=== PATIENT | male | born 1970 | race Hispanic/Latino ===

== ENCOUNTER 2017-04-17 08:44 | Emergency (ER) | payer MEDICAID ==
[2017-04-17 08:44] VITALS: BMI 39.1
[2017-04-17] MEDS ORDERED: Naproxen 550 mg Tab PO STA (09:16)
[2017-04-17] MEDS ORDERED: Naproxen 550 mg Tab PO ONE (09:24)
--- NOTE | 2017-04-17 09:38 | C.PDOC ---
History Of Present Illness 46-year-old male, presents to the emergency department with complaints of mid- back pain intermittently over the past few years. Patient has a Hx of herniated disk, and had surgery 2-3 years ago. One week ago, patients pain returned, and worsened over the past few days, resulting in him coming in to the ED for eval. Patient notes associated numbness radiating down his buttock and left leg. States he has not taken any meds for pain. Patient also reports francisco he sprained right ankle 6 months ago and is still having pain when he ambulates. States he never followed up outpatient. Time Seen by Provider: 04/17/17 09:02 Chief Complaint (Nursing): Back Pain History Per: Patient History/Exam Limitations: no limitations Onset/Duration Of Symptoms: Days Current Symptoms Are (Timing): Still Present Past Medical History Reviewed: Historical Data, Nursing Documentation, Vital Signs Vital Signs: Last Vital Signs Temp 97.7 F 04/17/17 10:15 Pulse 67 04/17/17 10:15 Resp 20 04/17/17 10:15 BP 142/78 04/17/17 10:15 Pulse Ox 98 04/17/17 12:32 - Medical History PMH: Asthma, Back Problems, Bronchitis, Kidney Stones Surgical History: Appendectomy, Back Surgery, Hernia Repair - [facility] Procedures OTHER OPEN UMBILICAL HERNIORRHAPHY (03/01/15) Family History: States: No Known Family Hx - Social History Hx Tobacco Use: No Hx Alcohol Use: No Hx Substance Use: No - Immunization History Hx Tetanus Toxoid Vaccination: No Hx Influenza Vaccination: No Hx Pneumococcal Vaccination: No Review Of Systems Constitutional: Negative for: Fever Gastrointestinal: Negative for: Nausea, Vomiting Genitourinary: Negative for: Incontinence Musculoskeletal: Positive for: Back Pain, Foot Pain (Ankle, right) Neurological: Positive for: Numbness Physical Exam - Physical Exam Appears: Non-toxic, No Acute Distress Skin: Normal Color, Warm, Dry Gastrointestinal/Abdominal: Soft, No Tenderness, No Guarding Back: No CVA Tenderness, No Vertebral Tenderness, Paraspinal Tenderness (B/L Lumbar), Straight Leg Raising (causing local back pain) Extremity: Normal ROM, No Tenderness, No Deformity, No Swelling Neurological/Psych: Oriented x3, Normal Speech, Normal Cognition ED Course And Treatment O2 Sat by Pulse Oximetry: 98 - Other Rad ankle X-Ray: Interpreted by Me (normal) Medical Decision Making Medical Decision Making: Pt markedly improved post Naprosyn Ankle no indiction of old fx Plan dc home rx's Disposition Counseled Patient/Family Regarding: Need For Followup - Disposition Referrals: Shaik Armenta MD [Staff Provider] - Disposition: HOME/ ROUTINE Disposition Time: 09:35 Condition: GOOD Prescriptions: Gabapentin [Neurontin] 1 cap PO TID #50 cap Naproxen [Naprosyn] 1 tab PO BID PRN #25 tab PRN Reason: Pain Instructions: Ankle Exercises (GEN), Back Pain (ED), Back Exercises (ED) - Clinical Impression Clinical Impression: Lumbar radiculopathy, Ankle pain - Scribe Statement The provider has reviewed the documentation as recorded by the Scribe (Kingsley Raymundo) All medical record entries made by the Scribe were at my direction and personally dictated by me. I have reviewed the chart and agree that the record accurately reflects my personal performance of the history, physical exam, medical decision making, and the department course for this patient. I have also personally directed, reviewed, and agree with the discharge instructions and disposition.
[2017-04-17 10:16] VITALS: BP 142/78; PULSE 67; RESP 20; TEMP 97.7
--- NOTE | 2017-04-17 10:41 | RAD ---
PROCEDURE: Right Ankle Radiographs. HISTORY: pain no recent trauma COMPARISON: None FINDINGS: BONES: Bone alignment and mineralization are normal. No acute fracture. JOINTS: Normal. Ankle mortise maintained. Talar dome intact SOFT TISSUES: There is mild lateral soft tissue swelling. OTHER FINDINGS: None. IMPRESSION: No acute fracture or dislocation. Mild lateral soft tissue swelling.
[2017-04-17 12:30] VITALS: O2SAT 98
== END 2017-04-17 10:14 | disposition home or self-care (01) ==
LOC: C.ER 08:44
DX: M54.16 Radiculopathy, lumbar region (principal); M25.571 Pain in right ankle and joints of right foot

== ENCOUNTER 2017-10-21 20:34 | Observation (INO) | payer MEDICAID ==
[2017-10-21 20:34] VITALS: BMI 39.1
[2017-10-21 20:42] VITALS: RESP 20
--- NOTE | 2017-10-21 20:58 | C.PDOC ---
History Of Present Illness 47M c/o swelling in both ankles for the last 4 to 5 months and pain for 4 days. he has a hx of lupus and usually has pain in his whole body but not normally the ankles. he also has felt subjective fever for 2 nights. takes plaquenil daily. Time Seen by Provider: 10/21/17 20:58 Chief Complaint (Nursing): Lower Extremity Problem/Injury Past Medical History Vital Signs: Last Vital Signs Temp 97.9 F 10/21/17 20:39 Pulse 91 H 10/21/17 20:39 Resp 20 10/21/17 20:39 BP 118/83 10/21/17 20:39 Pulse Ox 95 10/21/17 21:55 - Medical History PMH: Asthma, Back Problems, Bronchitis, Kidney Stones Surgical History: Appendectomy, Back Surgery, Hernia Repair - [facility] Procedures OTHER OPEN UMBILICAL HERNIORRHAPHY (03/01/15) Family History: States: Other Other Family History: nc - Social History Hx Tobacco Use: No Hx Alcohol Use: No Hx Substance Use: No - Immunization History Hx Tetanus Toxoid Vaccination: No Hx Influenza Vaccination: No Hx Pneumococcal Vaccination: No Review Of Systems Except As Marked, All Systems Reviewed And Found Negative. Constitutional: Positive for: Fever, Chills, Malaise ENT: Negative for: Nose Congestion Cardiovascular: Negative for: Chest Pain Respiratory: Positive for: Wheezing. Negative for: Cough, Shortness of Breath Gastrointestinal: Negative for: Nausea, Vomiting, Abdominal Pain Genitourinary: Positive for: Frequency. Negative for: Dysuria Neurological: Negative for: Weakness, Numbness, Headache Physical Exam - Physical Exam Appears: Well, Non-toxic, No Acute Distress Skin: Warm, Dry Head: Atraumatic Eye(s): bilateral: PERRL Nose: No Epistaxis Oral Mucosa: Moist Cardiovascular: Rhythm Regular Respiratory: No Decreased Breath Sounds, No Accessory Muscle Use, No Rales, No Rhonchi, Wheezing Gastrointestinal/Abdominal: Soft, No Tenderness Extremity: Normal ROM, No Pedal Edema (no pitting edema), No Swelling Pulses: Left Dorsalis Pedis: Normal, Right Dorsalis Pedis: Normal Neurological/Psych: Oriented x3, Normal Motor, Normal Sensation, Other (no focal deficits) ED Course And Treatment - Laboratory Results Result Diagrams: 10/21/17 21:29 12/21/17 21:29 O2 Sat by Pulse Oximetry: 95 Medical Decision Making Medical Decision Making: EKG: Normal Sinus Rhythm rate 86bpm. Normal axis. Normal intervals. No acute ischemia. CXR: no acute findings Disposition - Disposition Disposition: HOSPITALIZED Disposition Time: 22:23 Condition: STABLE Forms: [facility] (Vietnamese) - Clinical Impression Clinical Impression: Bilateral ankle pain
[2017-10-21 21:35] LABS: BASO # 0.1 K/uL (0.0-0.2); BASO % 1.2 % (0.0-2.0); EOS # 0.7 K/uL (0.0-0.7); EOS % 10.8 % (0.0-4.0); HEMATOCRIT 43.2 % (35.0-51.0); LYMPH % 29.6 % (20.0-40.0); MEAN CELL VOLUME 87.8 fL (80.0-94.0); MEAN CORPUSCULAR HGB CONC 35.3 g/dL (33.0-37.0); MEAN PLATELET VOLUME 9.9 fL (7.2-11.7); MONO # 0.6 K/uL (0.0-0.8); MONO % 8.3 % (0.0-10.0); NRBC % 0.1 % (0.0-2.0); RED CELL DISTRIBUTION WIDTH 12.7 % (11.5-14.5); WHITE BLOOD COUNT 6.7 K/uL (4.8-10.8)
[2017-10-21 21:45] LABS: ALB/GLOB RATIO 1.5 (1.0-2.1); ALKALINE PHOSPHATASE 105 U/L (38-126); ALT/SGPT 46 U/L (21-72); AST/SGOT 32 U/L (17-59); BILIRUBIN,TOTAL 0.5 mg/dL (0.2-1.3); BLOOD UREA NITROGEN 13 mg/dL (9-20); CALCIUM 8.7 mg/dl (8.6-10.4); CARBON DIOXIDE 27 mmol/L (22-30); CHLORIDE 101 mmol/L (98-107); GFR AFRICAN-AMERICAN > 60; GLUCOSE,RANDOM 144 mg/dL (75-110); POTASSIUM 3.9 mmol/L (3.6-5.2); SODIUM 136 mmol/L (132-148); TOTAL PROTEIN 6.8 g/dL (6.3-8.3)
[2017-10-22 07:36] LABS: RBC URINE 1 /hpf (0-3); URINE BILIRUBIN NEGATIVE (NEGATIVE); URINE BLOOD NEGATIVE (NEGATIVE); URINE COLOR Yellow (YELLOW); URINE GLUCOSE (UA) NORMAL (Normal); URINE KETONE TRACE mg/dL (NEGATIVE); URINE LEUKOCYTE ESTERASE NEG Leu/uL (Negative); URINE PROTEIN NEGATIVE (NEGATIVE); WBC URINE 6 /hpf (0-5)
--- NOTE | 2017-10-22 08:51 | RAD ---
HISTORY: leg swelling COMPARISON: 12/23/2016 FINDINGS: LUNGS: The lungs are well inflated. No focal consolidation. Mild pulmonary venous congestion. PLEURA: No significant pleural effusion identified, no pneumothorax apparent. CARDIOVASCULAR: Mild cardiomegaly. OSSEOUS STRUCTURES: No significant abnormalities. VISUALIZED UPPER ABDOMEN: Normal. OTHER FINDINGS: None. IMPRESSION: No active pulmonary disease.
[2017-10-22] MEDS: Pantoprazole 40 mg EC Tab PO SCH (09:34)
[2017-10-22] MEDS: Enoxaparin 40 mg Syringe SC SCH (09:35)
--- NOTE | 2017-10-22 16:26 | RAD ---
PROCEDURE: Bilateral Ankle Radiographs. HISTORY: pain and swelling both ankles COMPARISON: Right ankle from 04/17/2017 and 12/29/2016 FINDINGS: BONES: Right Ankle: Normal. No fracture. Left Ankle: Normal. No fracture. There is a prominent plantar calcaneal spur. JOINTS: Right Ankle: Normal. No osteoarthritis. Ankle mortise maintained. Talar dome intact. Left Ankle: Normal. No osteoarthritis. Ankle mortise maintained. Talar dome intact. SOFT TISSUES: Right Ankle: Normal. Left Ankle: Normal. OTHER FINDINGS: None. IMPRESSION: Normal bilateral ankle radiographs.
--- NOTE | 2017-10-22 18:33 | CARD ---
APPROVED REPORT EKG Measurement Heart [id number] DC 150P71 [id number] <Conclusion> Normal sinus rhythm Normal ECG
--- NOTE | 2017-10-22 21:24 | CP.PCM.HP ---
Past Patient History - Infectious Disease Hx of Infectious Diseases: None - Past Medical History & Family History Past Medical History?: Yes - Past Social History Smoking Status: Unknown If Ever Smoked - CARDIAC Hx Cardiac Disorders: No - PULMONARY Hx Respiratory Disorders: Yes Hx Asthma: Yes Hx Bronchitis: Yes - NEUROLOGICAL Hx Neurological Disorder: No - HEENT Hx HEENT Problems: Yes Other/Comment: farsightedness - RENAL Hx Chronic Kidney Disease: Yes Hx Kidney Stones: Yes - ENDOCRINE/METABOLIC Hx Endocrine Disorders: Yes Hx Systemic Lupus Erythematosus: Yes - HEMATOLOGICAL/ONCOLOGICAL Hx Blood Disorders: No - INTEGUMENTARY Hx Dermatological Problems: No - MUSCULOSKELETAL/RHEUMATOLOGICAL Hx Musculoskeletal Disorders: No Hx Falls: No - GASTROINTESTINAL Hx Gastrointestinal Disorders: No - GENITOURINARY/GYNECOLOGICAL Hx Genitourinary Disorders: No - PSYCHIATRIC Hx Psychophysiologic Disorder: No Hx Substance Use: No - SURGICAL HISTORY Hx Surgeries: Yes Hx Appendectomy: Yes Hx Herniorrhaphy: Yes - ANESTHESIA Hx Anesthesia: Yes Hx Anesthesia Reactions: No Hx Malignant Hyperthermia: No Has any member of the family had a problem w/ anesthesia?: No Meds Allergies/Adverse Reactions: Allergies Allergy/AdvReac Type Severity Reaction Status Date / Time iodine Allergy Verified 10/21/17 20:39 shellfish Allergy URTICARIA Uncoded 12/23/16 08:14 Physical Exam - Constitutional Appears: Well - Eye Exam Eye Exam: EOMI, Normal appearance, PERRL Pupil Exam: NORMAL ACCOMODATION, PERRL - ENT Exam ENT Exam: Mucous Membranes Moist, Normal Exam - Neck Exam Neck exam: Positive for: Normal Inspection - Respiratory Exam Respiratory Exam: Decreased Breath Sounds - Cardiovascular Exam Cardiovascular Exam: REGULAR RHYTHM, +S1, +S2 - GI/Abdominal Exam GI & Abdominal Exam: Diminished Bowel Sounds, Soft - Rectal Exam Rectal Exam: Deferred Results - Vital Signs Recent Vital Signs: Last Vital Signs Temp 98.2 F 10/22/17 15:12 Pulse 75 10/22/17 15:12 Resp 20 10/22/17 15:12 BP 117/73 10/22/17 15:12 Pulse Ox 93 L 10/22/17 15:12 - Labs Result Diagrams: 10/21/17 21:29 10/21/17 21:29 Labs: Laboratory Results - last 24 hr 10/21/17 10/21/17 10/21/17 21:29 21:29 21:29 WBC 6.7 RBC 4.92 Hgb 15.2 Hct 43.2 MCV 87.8 MCH 31.0 MCHC 35.3 RDW 12.7 Plt Count 246 MPV 9.9 Neut % (Auto) 50.1 Lymph % (Auto) 29.6 Stevens % (Auto) 8.3 Eos % (Auto) 10.8 H Baso % (Auto) 1.2 Neut # 3.4 Lymph # 2.0 Stevens # 0.6 Eos # 0.7 Baso # 0.1 ESR 5 Sodium 136 Potassium 3.9 Chloride 101 Carbon Dioxide 27 Anion Gap 12 BUN 13 Creatinine 1.0 Est GFR ( Amer) > 60 Est GFR (Non-Af Amer) > 60 Random Glucose 144 H Calcium 8.7 Total Bilirubin 0.5 AST 32 ALT 46 Alkaline Phosphatase 105 Troponin I < 0.0120 C-React Prot High Sens 3.80 H NT-Pro-B Natriuret Pep < 11.1 Total Protein 6.8 Albumin 4.0 Globulin 2.8 Albumin/Globulin Ratio 1.5 Urine Color Urine Clarity Urine pH Ur Specific [place] Urine Protein Urine Glucose (UA) Urine Ketones Urine Blood Urine Nitrate Urine Bilirubin Urine Urobilinogen Ur Leukocyte Esterase Urine WBC (Auto) Urine RBC (Auto) Ur Squamous Epith Cells Anti-Staphylolysin O 10/22/17 10/22/17 10/22/17 07:16 11:29 11:29 WBC RBC Hgb Hct MCV MCH MCHC RDW Plt Count MPV Neut % (Auto) Lymph % (Auto) Stevens % (Auto) Eos % (Auto) Baso % (Auto) Neut # Lymph # Stevens # Eos # Baso # ESR Sodium Potassium Chloride Carbon Dioxide Anion Gap BUN Creatinine Est GFR ( Amer) Est GFR (Non-Af Amer) Random Glucose Calcium Total Bilirubin AST ALT Alkaline Phosphatase Troponin I C-React Prot High Sens 3.47 H NT-Pro-B Natriuret Pep Total Protein Albumin Globulin Albumin/Globulin Ratio Urine Color Yellow Urine Clarity Clear Urine pH 5.0 Ur Specific [place] 1.030 Urine Protein Negative Urine Glucose (UA) Normal Urine Ketones Trace Urine Blood Negative Urine Nitrate Negative Urine Bilirubin Negative Urine Urobilinogen 2.0 Ur Leukocyte Esterase Neg Urine WBC (Auto) 6 H Urine RBC (Auto) 1 Ur Squamous Epith Cells 1 Anti-Staphylolysin O Negative
[2017-10-23 00:39] VITALS: BP 128/60; PULSE 70; TEMP 97.4; O2SAT 95
[2017-10-23] MEDS: Pantoprazole 40 mg EC Tab PO SCH (09:36)
[2017-10-23] MEDS: Enoxaparin 40 mg Syringe SC SCH ×2 (09:36→10:15)
[2017-10-23] MEDS ORDERED: Pneumococcal 23-Valent Vaccine IM ONE (10:00)
[2017-10-23] MEDS ORDERED: Influenza Vaccine 60 mcg/0.5 mL SYR (4YR UP) IM ONE (10:00)
--- NOTE | 2017-10-23 11:19 | CP.PCM.PN ---
Subjective - Date & Time of Evaluation Date of Evaluation: 10/23/17 Time of Evaluation: 11:18 Objective - Vital Signs/Intake and Output Vital Signs (last 24 hours): Temp Pulse Resp BP Pulse Ox 97.4 F L 70 20 128/60 95 10/23/17 00:00 10/23/17 00:00 10/23/17 00:00 10/23/17 00:00 10/23/17 00:00 Intake and Output: 10/23/17 10/23/17 06:59 18:59 Intake Total 550 Balance 550 - Medications Medications: Current Medications Enoxaparin Sodium (Lovenox) 40 mg SC DAILY [facility] Last Admin: 10/23/17 10:15 Dose: Not Given Gabapentin (Neurontin) 100 mg PO TID [facility] Last Admin: 10/23/17 09:35 Dose: 100 mg Hydromorphone HCl (Dilaudid) 1 mg IVP Q8H PRN PRN Reason: Pain, severe (8-10) Last Admin: 10/22/17 01:14 Dose: 1 mg Pantoprazole Sodium (Protonix Ec Tab) 40 mg PO DAILY [facility] Last Admin: 10/23/17 09:36 Dose: 40 mg - Labs Labs: 10/21/17 21:29 10/21/17 21:29
--- NOTE | 2017-10-23 15:18 | CP.PCM.PN ---
Subjective - Date & Time of Evaluation Date of Evaluation: 10/23/17 Time of Evaluation: 08:00 - Subjective Subjective: clinically same Objective - Vital Signs/Intake and Output Vital Signs (last 24 hours): Temp Pulse Resp BP Pulse Ox 97.4 F L 70 20 128/60 95 10/23/17 00:00 10/23/17 00:00 10/23/17 00:00 10/23/17 00:00 10/23/17 00:00 Intake and Output: 10/23/17 10/23/17 06:59 18:59 Intake Total 550 300 Balance 550 300 - Medications Medications: Current Medications Enoxaparin Sodium (Lovenox) 40 mg SC DAILY [facility] Last Admin: 10/23/17 10:15 Dose: Not Given Gabapentin (Neurontin) 100 mg PO TID [facility] Last Admin: 10/23/17 13:20 Dose: 100 mg Hydromorphone HCl (Dilaudid) 1 mg IVP Q8H PRN PRN Reason: Pain, severe (8-10) Last Admin: 10/22/17 01:14 Dose: 1 mg Pantoprazole Sodium (Protonix Ec Tab) 40 mg PO DAILY [facility] Last Admin: 10/23/17 09:36 Dose: 40 mg - Labs Labs: 10/21/17 21:29 10/21/17 21:29 - Constitutional Appears: Well - Head Exam Head Exam: ATRAUMATIC, NORMAL INSPECTION, NORMOCEPHALIC - Eye Exam Eye Exam: EOMI, Normal appearance, PERRL Pupil Exam: NORMAL ACCOMODATION, PERRL - ENT Exam ENT Exam: Mucous Membranes Moist, Normal Exam - Neck Exam Neck Exam: Full ROM, Normal Inspection. absent: Lymphadenopathy - Respiratory Exam Respiratory Exam: Decreased Breath Sounds - Cardiovascular Exam Cardiovascular Exam: REGULAR RHYTHM, +S1, +S2 - GI/Abdominal Exam GI & Abdominal Exam: Soft, Diminished Bowel Sounds - Rectal Exam Rectal Exam: Deferred
--- NOTE | 2017-10-23 16:03 | CP.PCM.PN ---
Subjective - Date & Time of Evaluation Date of Evaluation: 10/23/17 Time of Evaluation: 16:03 - Subjective Subjective: PATIENT WAS ADMITTED FOR BILATERAL ANKLE PAIN; AAOX3 DENIES CHEST PAIN , SOB NAUSEA OR VOMITING; NO SIGN OF DISTRESS NOTED Objective - Vital Signs/Intake and Output Vital Signs (last 24 hours): Temp Pulse Resp BP Pulse Ox 97.4 F L 70 20 128/60 95 10/23/17 00:00 10/23/17 00:00 10/23/17 00:00 10/23/17 00:00 10/23/17 00:00 Intake and Output: 10/23/17 10/23/17 06:59 18:59 Intake Total 550 300 Balance 550 300 - Medications Medications: Current Medications Enoxaparin Sodium (Lovenox) 40 mg SC DAILY [facility] Last Admin: 10/23/17 10:15 Dose: Not Given Gabapentin (Neurontin) 100 mg PO TID [facility] Last Admin: 10/23/17 13:20 Dose: 100 mg Hydromorphone HCl (Dilaudid) 1 mg IVP Q8H PRN PRN Reason: Pain, severe (8-10) Last Admin: 10/22/17 01:14 Dose: 1 mg Pantoprazole Sodium (Protonix Ec Tab) 40 mg PO DAILY [facility] Last Admin: 10/23/17 09:36 Dose: 40 mg - Labs Labs: 10/21/17 21:29 10/21/17 21:29 Assessment and Plan - Assessment and Plan (Free Text) Assessment: A/P PATIENT IS SEEN AND EXAMINED AT THE BEDSIDE ANKLE X RAY IS NORMAL DISCUSS FINDING WITH DR Carissa MCNEILL WHO ADVISE THE PATIENT TO GO TO HIS PRIMARY DR DUKES AND GET A REFERRAL FOR DR LYONS FOLLOW UP WITH DR DUKES IN 1-2 WEEK AT HIS OFFICE ---- CALL FOR APPOINTMENT AT YOUR APPOINTMENT ASK FOR REFERRAL FOR DR LYONS FOLLOW UP WITH DR LYONS IN A WEEK AT HIS OFFICE ---CALL HIS OFFICE FOR APPOINTMENT ADDRESS YOUR LATEST RESULT AT YOUR APPOINTMENT CONTINUE ALL YOUR HOME MED PER MED REC CALL DR MCNEILL OR GO THE ER IF SYMPTOMS RETURN OR WORSENING DISCUSS WITH PATIENT WHA AGREE AND VERBALIZE UNDERSTANDING
[2017-10-26 12:19] LABS: ANA TITER 1:40
[2017-10-26 18:03] LABS: CCP IGG <16 Units (<20)
[2017-10-26 19:18] LABS: Interpretation Negative (Negative)
== END 2017-10-23 16:15 | disposition home or self-care (01) ==
LOC: C.ER 20:34 → C.3T 22:24
PROVIDERS: ADMIT Internal Medicine Nephrology; ATTEND Internal Medicine Nephrology
DX: M25.572 Pain in left ankle and joints of left foot (principal); M25.571 Pain in right ankle and joints of right foot; J45.909 Unspecified asthma, uncomplicated
CPT/HCPCS: 36415; 71010; 73600; 80053; 81001; 83880; 84484; 85025; 85651; 86038; 86060; 86140; 86147; 86200; 86225; 86235; 90471; 90674; 90732; 93005; 96374; 97110; 97124; 97161; 99284; G0378; G8978; G8979; J1170; J1650; J1885

== ENCOUNTER 2018-03-04 08:19 | Emergency (ER) | payer MEDICAID ==
[2018-03-04 08:37] VITALS: BMI 38.3
[2018-03-04 08:43] VITALS: RESP 20
[2018-03-04] MEDS ORDERED: Albuterol 0.083% Inhal Sol (2.5 mg/3 mL) UD IH STA (09:08)
[2018-03-04] MEDS ORDERED: Albuterol 0.083% Inhal Sol (2.5 mg/3 mL) UD ONE (09:22)
--- NOTE | 2018-03-04 09:26 | C.PDOC ---
History Of Present Illness 47 y/o male with history of Asthma presents to ED with c/o a cough for two weeks. Pt notes it started with body aches and subjective fever, those symptoms improved but the cough persists. Pt notes he has chest pain only when he coughs. Patient states he has used nebulizer at home with transient relief and OTC cough medication. Patient admits to sick contact () who has the same symptoms. Denies recent travel, nausea, vomiting, sob or any other complaints at this time. Time Seen by Provider: 03/04/18 09:02 Chief Complaint (Nursing): Cough, Cold, Congestion History Per: Patient History/Exam Limitations: no limitations Onset/Duration Of Symptoms: Days Current Symptoms Are (Timing): Still Present Associated Symptoms: Cough Additional History Per: Prior Records (Prior records evaluted with the same symtpoms ) Past Medical History Reviewed: Historical Data, Nursing Documentation, Vital Signs Vital Signs: Last Vital Signs Temp 98.3 F 03/04/18 10:31 Pulse 76 03/04/18 10:31 Resp 20 03/04/18 10:31 BP 134/74 03/04/18 10:31 Pulse Ox 95 03/04/18 17:56 - Medical History PMH: Asthma, Back Problems, Bronchitis, Kidney Stones, Chronic Kidney Disease Surgical History: Appendectomy, Back Surgery, Hernia Repair - [facility] Procedures OTHER OPEN UMBILICAL HERNIORRHAPHY (03/01/15) Family History: States: No Known Family Hx - Social History Hx Tobacco Use: No Hx Alcohol Use: No Hx Substance Use: No - Immunization History Hx Tetanus Toxoid Vaccination: No Hx Influenza Vaccination: No Hx Pneumococcal Vaccination: No Review Of Systems Constitutional: Positive for: Fever. Negative for: Chills Respiratory: Positive for: Cough. Negative for: Shortness of Breath Gastrointestinal: Negative for: Nausea, Vomiting Musculoskeletal: Positive for: Other (Generalized body ache) Skin: Negative for: Rash Physical Exam - Physical Exam Appears: Non-toxic, No Acute Distress Skin: Warm, Dry Head: Atraumatic, Normacephalic Eye(s): bilateral: Normal Inspection, EOMI Ear(s): Bilateral: Normal Nose: Normal Oral Mucosa: Moist Throat: Normal, No Erythema, No Exudate Neck: Normal ROM, Supple Chest: Symmetrical, Tenderness (positionally and digitally reproducible tenderness to anterior wall) Cardiovascular: Rhythm Regular Respiratory: Normal Breath Sounds, No Accessory Muscle Use, No Rales, No Rhonchi , No Wheezing Gastrointestinal/Abdominal: Soft, No Tenderness, No Guarding, No Rebound Back: No CVA Tenderness, No Vertebral Tenderness Extremity: Normal ROM, Capillary Refill (<2 seconds) Neurological/Psych: Oriented x3, Normal Speech, Normal Cognition ED Course And Treatment ECG: Interpreted By Me (Dr Rossi), Viewed By Me ECG Rhythm: Sinus Rhythm Rate From EC (BPM) O2 Sat by Pulse Oximetry: 95 (RA) Pulse Ox Interpretation: Normal - Other Rad CXR X-Ray: Viewed By Me, Read By Radiologist Interpretation: HISTORY: uri. COMPARISON: 10/21/2017. TECHNIQUE: Chest PA and lateral. FINDINGS: LUNGS: No active pulmonary disease. PLEURA: No significant pleural effusion identified. No pneumothorax apparent. CARDIOVASCULAR: Normal. OSSEOUS STRUCTURES: No significant abnormalities. VISUALIZED UPPER ABDOMEN: Normal. OTHER FINDINGS: None. IMPRESSION: No active disease. Progress Note: CXR ordered. Albuterol administered. On re evalaution patient symptoms have imprved. No cough. Denies SOB or chest pain. Afebrile. Neck supple. Instructed to follow up with PMD in 1-2 days or return to eR if symtpoms persist or worsen. Case discussed with Dr Rossi, agreed upon plan, work up and discharge. Disposition - Disposition Disposition: HOME/ ROUTINE Disposition Time: 10:30 Condition: STABLE Additional Instructions: Follow up with PMD in 1-2 days. Return to ER if symptoms persist or worsen. Prescriptions: Azithromycin [Zithromax] 250 mg PO DAILY #6 tab Benzonatate [Tessalon Perle] 100 mg PO TID PRN #15 capsule PRN Reason: Cough predniSONE [Prednisone] 40 mg PO DAILY #10 tab Instructions: Acute Bronchitis, Adult (DC) Forms: [facility] (Lithuanian) - Clinical Impression Clinical Impression: Bronchitis - PA / [employer] / Resident Statement MD/DO has reviewed & agrees with the documentation as recorded. - Scribe Statement The provider has reviewed the documentation as recorded by the Meganibgigi Pacheco All medical record entries made by the Scribe were at my direction and personally dictated by me. I have reviewed the chart and agree that the record accurately reflects my personal performance of the history, physical exam, medical decision making, and the department course for this patient. I have also personally directed, reviewed, and agree with the discharge instructions and disposition.
--- NOTE | 2018-03-04 10:28 | RAD ---
HISTORY: uri COMPARISON: 10/21/2017 TECHNIQUE: Chest PA and lateral FINDINGS: LUNGS: No active pulmonary disease. PLEURA: No significant pleural effusion identified. No pneumothorax apparent. CARDIOVASCULAR: Normal. OSSEOUS STRUCTURES: No significant abnormalities. VISUALIZED UPPER ABDOMEN: Normal. OTHER FINDINGS: None. IMPRESSION: No active disease.
[2018-03-04 10:31] VITALS: BP 134/74; PULSE 76; TEMP 98.3
[2018-03-04 10:34] VITALS: O2SAT 95
--- NOTE | 2018-03-07 16:05 | CARD ---
APPROVED REPORT EKG Measurement Heart [id number] WV 140P61 [id number] [id number] <Conclusion> Normal sinus rhythm Nonspecific T wave abnormality Abnormal ECG
== END 2018-03-04 10:43 | disposition home or self-care (01) ==
LOC: C.ER 08:19
DX: J40 Bronchitis, not specified as acute or chronic (principal); N18.9 Chronic kidney disease, unspecified